=== PATIENT | female | born 1975 | race Caucasian/White ===

== ENCOUNTER 2017-05-27 09:49 | Outpatient (CLI) | payer MEDICAID ==
--- NOTE | 2017-05-27 12:30 | XRAY Report ---
TWO-VIEW CHEST: 05/27/2017 COMPARISON: Two-view chest 07/09/2011. INDICATION: Chronic cough. TECHNIQUE: Two views of the chest. FINDINGS: Clear lungs. No pneumothorax or pleural effusion. Mediastinum unremarkable. Generator device overlies the right thorax. IMPRESSION: NO EVIDENCE OF ACTIVE PULMONARY PROCESS. JOB #: [id number] EXT JOB #: [id number] [facility]
== END 2017-05-27 09:50 | disposition home or self-care (01) ==
LOC: DI.S 09:49
PROVIDERS: ATTEND Nurse Practitioner Family
DX: R05 Cough (principal)
CPT/HCPCS: 71020

== ENCOUNTER 2017-07-03 13:22 | Outpatient (CLI) | payer MEDICAID ==
[2017-07-03] MEDS ORDERED: ALBUTEROL NEB 2.5 MG/3 ML INH PRN (14:48)
[2017-07-03] MEDS ORDERED: ALBUTEROL NEB 2.5 MG/3 ML INH SCH (14:56)
== END 2017-07-03 13:23 | disposition home or self-care (01) ==
LOC: RT 13:22
PROVIDERS: ATTEND Nurse Practitioner Family
DX: R05 Cough (principal)
CPT/HCPCS: 94060; 94664; 94729; J7613

== ENCOUNTER 2018-03-22 14:16 | Outpatient (CLI) | payer MEDICAID ==
--- NOTE | 2018-03-23 10:39 | XRAY Report ---
Reason: ACUTE BRONCHOSPASM Procedure Date: 03/22/2018 Accession Number: [id number] / [id number] Procedure: XRS - Chest 2 View X-Ray CPT Code: 85027 FULL RESULT: EXAM: CHEST RADIOGRAPHY EXAM DATE: 03/22/2018 02:27 PM. CLINICAL HISTORY: Acute bronchospasm. COMPARISON: Chest 2 view PA/LAT 05/27/2017 10:03 AM. TECHNIQUE: 2 views. FINDINGS: Lungs/Pleura: No focal opacities evident. No pleural effusion. No pneumothorax. Normal volumes. Mediastinum: Heart and mediastinal contours are unremarkable. Other: Redemonstration of neurostimulator device. IMPRESSION: Stable radiograph with no acute cardiopulmonary abnormality. RADIA
== END 2018-03-22 14:17 | disposition home or self-care (01) ==
LOC: DI.S 14:16
PROVIDERS: ATTEND Nurse Practitioner Family
DX: J98.01 Acute bronchospasm (principal)
CPT/HCPCS: 71046

== ENCOUNTER 2018-06-22 11:39 | Outpatient (CLI) | payer MEDICAID ==
--- NOTE | 2018-06-23 09:14 | Mammography Report ---
Reason: SCREENING MAMMO Procedure Date: 06/22/2018 Accession Number: [id number] / [id number] Procedure: PRISCILLA - Screening Mammo w/Mil CPT Code: FULL RESULT: EXAM: Screening Mammo w/Mil DATE: 06/22/2018 12:05 PM CLINICAL HISTORY: Screening encounter. History of right breast biopsy with benign results. TECHNIQUE: Bilateral CC and MLO views were obtained. COMPARISON: 06/24/2014 through 10/29/2013. FINDINGS: The breasts demonstrate scattered fibroglandular densities bilaterally. Postbiopsy changes including a biopsy marker are seen in the right breast. The well-circumscribed nodule in the right upper inner central breast associated with the biopsy marker is unchanged in appearance. No suspicious masses, clustered microcalcifications, or regions of architectural distortion are identified. IMPRESSION: Benign findings RECOMMENDATION: Routine annual screening unless otherwise clinically indicated. BIRADS CATEGORY 2: Benign findings STANDARD QUALIFYING STATEMENTS: 1. This examination was not reviewed with the aid of Computer-Aided Detection (CAD). 2. A negative or benign imaging report should not preclude biopsy if clinically suspicious findings are present. 3. Dense breasts may obscure an underlying neoplasm. 4. This examination was reviewed with the aid of 3D breast imaging (tomosynthesis).
== END 2018-06-22 11:40 | disposition home or self-care (01) ==
LOC: DI 11:39
PROVIDERS: ATTEND Nurse Practitioner Family
DX: Z12.31 Encounter for screening mammogram for malignant neoplasm of breast (principal)
CPT/HCPCS: 77063; 77067

== ENCOUNTER 2018-09-13 13:57 | Outpatient (CLI) | payer MEDICAID | END 2018-09-13 13:58 | disposition home or self-care (01) | LOC: LAB.F 13:57 | PROVIDERS: ATTEND Nurse Practitioner Family | DX: Z01.84 Encounter for antibody response examination (principal) | CPT/HCPCS: 36415; 81599; 86317; 86704; 86705; 86762; 86765; 86787 ==

== ENCOUNTER 2020-04-18 09:57 | Outpatient (CLI) | payer BC ==
--- NOTE | 2020-04-21 16:37 | Mammography Report ---
BILATERAL DIGITAL SCREENING MAMMOGRAM 3D/2D: 04/18/2020 CLINICAL: Routine screening. Comparison is made to exams dated: 06/22/2018 mammogram, 06/24/2014 mammogram, 11/21/2013 ultrasound biops y, 11/09/2013 mammogram, 11/09/2013 ultrasound, and 10/29/2013 mammogram - [facility]. The tissue of both breasts is heterogeneously dense. This may lower the sensitivity of mammography. There is a benign mass in the right breast. There also is a biopsy clip in the right breast. No significant masses, calcifications, or other findings are seen in either breast. There has been no significant interval change. IMPRESSION: BENIGN There is no mammographic evidence of malignancy. A 1 year screening mammogram is recommended. This exam was interpreted at Station ID: [id number]. NOTE: For mammograms, a report in lay terms will be sent to the patient. Approximately 15% of breast malignancies will not be visualized mammographically. In the management of a palpable breast mass, a negative mammogram must not discourage biopsy of a clinically suspicious lesion. Electronically Signed By: Melvin Garza M.D. ddp/penrad:04/18/2020 14:19:31 ACR BI-RADS Category 2: Benign Finding(s) 3342F PARENCHYMAL PATTERN: (D) - The breast(s) demonstrate(s) heterogeneously dense fibroglandular teresita browne. BI-RADS CATEGORY: (2) - 2 RECOMMENDATION: (ANNUAL) - Recommend routine annual screening mammography. [id number] 1 year screening LATERALITY: (B)
== END 2020-04-18 09:58 | disposition home or self-care (01) ==
LOC: DI 09:57
DX: Z12.31 Encounter for screening mammogram for malignant neoplasm of breast (principal)
CPT/HCPCS: 77063; 77067

== ENCOUNTER 2021-12-01 13:32 | Day surgery (SDC) | payer MEDICAID ==
[2021-12-01] MEDS ORDERED: LACTATED RINGERS 1,000 ML IV ONE (13:54)
[2021-12-01] MEDS ORDERED: PROPOFOL 500 MG/50 ML 500 MG/50 ML VIAL ONE (14:21)
--- NOTE | 2021-12-01 14:26 | ANESTHESIA ---
Pre-Anesthesia VS, & Labs - Diagnosis family hx of colon CA - Procedure Colonoscopy Vital Signs: Temp Pulse Resp BP Pulse Ox 36.7 C 97 17 166/101 H 98 12/01/21 13:55 12/01/21 13:55 12/01/21 13:55 12/01/21 13:55 12/01/21 13:55 Height: 5 ft 4 in Weight (kg): 60.6 kg Body Mass Index: 22.9 BMI Classification: Healthy weight - NPO >8 hours - Is Patient ?: No, Waiver signed Home Medications and Allergies Allergies/Adverse Reactions: Allergies Allergy/AdvReac Type Severity Reaction Status Date / Time oxycodone HCl * AdvReac Intermediate Nausea Verified 12/01/21 14:01 [From Percocet] codeine AdvReac Nausea Verified 12/01/21 14:01 Anes History & Medical History - Anesthetic History Anesthesia Complications: reports: No previous complications Family history of Anesthesia Complications: Denies Family history of Malignant Hyperthermia: Denies - Medical History Cardiovascular: reports: Hypertension Pulmonary: reports: Asthma Gastrointestinal: reports: None Urinary: reports: None Neuro: reports: Other (Trigeminal neuralgia) Musculoskeletal: reports: None Endocrine/Autoimmune: reports: None Skin: reports: Eczema Smoking Status: Current every day smoker Psychosocial: reports: Alcohol (ETOH abuse) History of Cancer?: No - Surgical History Gynecologic: reports: Tubal ligation Neurologic: reports: Other (R chest nerve stimulator, no longer working but still in place) Orthopedic: reports: Other Exam General: Alert, Oriented x3, Cooperative Dental: WNL Mouth Openin Fingerbreadth Neck Mobility: Normal Mallampati classification: I Thyromental Distance: 4-6 cm Respiratory: Lungs clear Cardiovascular: Regular rate Plan Anesthesia Type: Total IV Consent for Procedure(s) Verified and Reviewed: Yes Code Status: Attempt Resuscitation ASA classification: 3-Severe systemic disease Is this case an emergency?: No
[2021-12-01] MEDS ORDERED: MIDAZOLAM 2 MG/2 ML VIAL ONE (14:37)
[2021-12-01] MEDS ORDERED: PROPOFOL 200 MG/20 ML VIAL IVP ONE (15:16)
[2021-12-01] MEDS ORDERED: LACTATED RINGERS 300 ML IV ONE (15:17)
[2021-12-01 15:41] VITALS: BP 129/89
--- NOTE | 2021-12-01 15:57 | ANESTHESIA POST OP EVALUATION ---
Anesthesia Post Eval - Post Anesthesia Eval Vitals: Last Vital Signs Temp 36.4 C L 12/01/21 15:40 Pulse 88 12/01/21 15:40 Resp 16 12/01/21 15:40 BP 129/89 H 12/01/21 15:40 Pulse Ox 100 12/01/21 15:40 CV Function Including HR & BP: Stable Pain Control: Satisfactory Nausea & Vomiting: Negative Mental Status: Baseline Respiratory Status: Airway Patent Hydration Status: Satisfactory Anesthesia Complications: None
== END 2021-12-01 13:33 | disposition home or self-care (01) ==
LOC: SDS 13:32
PROVIDERS: ATTEND Surgery
PROC: 0DBL8ZZ Excision of Transverse Colon, Via Natural or Artificial Opening Endoscopic (ICD-10-PCS; 2021-12-01)
PROC: 0DBN8ZZ Excision of Sigmoid Colon, Via Natural or Artificial Opening Endoscopic (ICD-10-PCS; 2021-12-01)
PROC: 0DBP8ZZ Excision of Rectum, Via Natural or Artificial Opening Endoscopic (ICD-10-PCS; 2021-12-01)
PROC: 0DBN8ZZ Excision of Sigmoid Colon, Via Natural or Artificial Opening Endoscopic (ICD-10-PCS; 2021-12-01)
PROC: 0DBP8ZZ Excision of Rectum, Via Natural or Artificial Opening Endoscopic (ICD-10-PCS; principal; 2021-12-01 14:45)
DX: Z12.11 Encounter for screening for malignant neoplasm of colon (principal); D12.3 Benign neoplasm of transverse colon; K63.5 Polyp of colon; K62.1 Rectal polyp; K57.30 Diverticulosis of large intestine without perforation or abscess without bleeding; J45.909 Unspecified asthma, uncomplicated; F41.1 Generalized anxiety disorder; F10.10 Alcohol abuse, uncomplicated; Z80.0 Family history of malignant neoplasm of digestive organs; F17.200 Nicotine dependence, unspecified, uncomplicated
CPT/HCPCS: 45380; 45385; J7120

== ENCOUNTER 2023-07-25 14:16 | Outpatient (CLI) | payer MEDICAID ==
--- NOTE | 2023-07-26 16:22 | Mammography Report ---
BILATERAL DIGITAL SCREENING MAMMOGRAM 3D/2D: 07/25/2023 CLINICAL: Routine screening. Comparison is made to exams dated: 01/08/2022 mammogram - [facility], 04/18/2020 mammogra m, 06/22/2018 mammogram, 06/24/2014 mammogram, and 11/09/2013 mammogram - [facility]. Both breasts are heterogeneously dense, which may obscure small masses (category c / 51-75% glandular tissue). No significant masses, calcifications, or other findings are seen in either breast. There has been no significant interval change. IMPRESSION: NEGATIVE There is no mammographic evidence of malignancy. A 1 year screening mammogram is recommended. Based on the Tyrer Cuzick model (a risk assessment model) the patient's lifetime risk is 12.2% and he r 10 year risk is 2.9%. According to the ACR, ACS, and NCCN guidelines, an annual breast MRI exam franny ng with mammogram is recommended if the patient's lifetime risk is 20% or greater. This exam was interpreted at Station ID: [id number]. NOTE: For mammograms, a report in lay terms will be sent to the patient. Approximately 15% of breast malignancies will not be visualized mammographically. In the management of a palpable breast mass, a negative mammogram must not discourage biopsy of a clinically suspicious lesion. Electronically Signed By: Carlton weiss/kevin:07/26/2023 08:47:00 letter sent: No_Letter ACR BI-RADS Category 1: Negative 3341F PARENCHYMAL PATTERN: (D) - The breast(s) demonstrate(s) heterogeneously dense fibroglandular teresita browne. BI-RADS CATEGORY: (1) - 1 Mammogram [id number] 1 year screening LATERALITY: (B)
== END 2023-07-25 14:17 | disposition home or self-care (01) ==
LOC: DI 14:16
DX: Z12.31 Encounter for screening mammogram for malignant neoplasm of breast (principal); R92.333 Mammographic heterogeneous density, bilateral breasts